=== PATIENT | female | born 1985 | race Caucasian/White ===

== ENCOUNTER 2017-11-07 05:55 | Emergency (ER) | payer BC, OTHER ==
[2017-11-07 06:25] LABS: Bilirubin Negative (Negative); Blood, Urine Small (Negative); Clarity CLEAR (Clear); Glucose, Urine (Dipstick) Negative (Negative); Leukocyte Trace (Negative); Nitrite Negative (Negative); Pregnancy Test - Urine (BHCG) Negative (Negative); Pregu Control Background? CLEAR/WHITE (CLR/WHITE); Pregu Control Bar Appear? YES (CONTROL BAR); Protein, Urine (Dipstick) Negative (Neg-Trace); Specific Gravity 1.013 (1.002-1.036); Specific Gravity, Urine 1.013 (1.002-1.036); Urobilinogen 0.2 mg/dL (0.2-1.0); pH, Urine 6.5 (5.0-9.0)
[2017-11-07 06:27] LABS: Bacteria/HPF Rare-Few HPF (None Seen); Hyaline Casts/LPF 0-3 HYALINE CAST LPF (0-3 Hyaline); Pathc Cast-AUWi Flag 0.27 (0-2.49); RBC/HPF 0-3 HPF (0-3); Squamous Epithelial None Seen HPF (0-3); WBC/HPF 0-3 HPF (0-3)
[2017-11-07 06:35] LABS: #Basophils 0.1 thou/uL (0.0-0.2); #Eosinphils 0.1 thou/uL (0.0-0.7); #Lymphocytes 2.7 thou/uL (1.20-3.40); #Monocytes 0.5 thou/uL (0.11-0.59); #Neutrophils 4.5 thou/uL (1.40-6.50); %Basophils 0.6 % (0.0-1.0); %Eosinophils 1.7 % (0.0-10.0); %Lymphocytes 34.6 % (21.0-51.0); %Monocytes 6.1 % (0.0-10.0); Hemoglobin 15.1 g/dL (12.0-16.0); Mean Corpuscular HGB CONC 33.8 g/dL (32.0-36.0); Mean Corpuscular Hemoglobin 31.4 pg (27.0-31.0); Mean Platelet Volume 6.4 fL (7.4-10.4); Platelet Count 289 thou/uL (130-400); RBC Distribution Width 11.7 % (11.5-14.5); White Blood Cell (WBC) Count 7.9 thou/uL (4.8-10.8)
[2017-11-07 06:59] LABS: ALT (SGPT) 18 U/L (8-55); AST (SGOT) 16 U/L (5-34); Albumin 4.2 g/dL (3.5-5.0); Alkaline Phosphatase 70 U/L (40-150); Anion Gap 14 mmol/L (10-20); BUN (Urea Nitrogen) 16 mg/dL (7.0-18.7); Bilirubin, Total 0.4 mg/dL (0.2-1.2); Calc. Creatinine Clearance 0 mL/min (70-130); Calcium 9.4 mg/dL (7.8-10.44); Carbon Dioxide 24 mmol/L (22-29); Chloride 105 mmol/L (98-107); Estimated GFR-MDRD 72; Globulin 2.8 g/dL (2.4-3.5); Glucose 121 mg/dL (70-105); Potassium 3.5 mmol/L (3.5-5.1); Sodium 139 mmol/L (136-145)
--- NOTE | 2017-11-07 07:57 | RAD ---
KUB: COMPARISON: None. HISTORY: Left lower quadrant abdominal pain that began 5 days ago. FINDINGS: A single view of the abdomen shows a nonspecific, nonobstructed bowel gas pattern. Mild stool retent ion is seen throughout the colon. No suspicious calcifications are seen. IMPRESSION: Mild stool retention. POS: JORDY
--- NOTE | 2017-11-07 08:07 | ULT ---
PELVIC ULTRASOUND: Date: 11/07/17 HISTORY: Left lower quadrant pain/pelvic pain. FINDINGS: Multiple transabdominal and endovaginal sonographic images of the pelvis are obtained. Uterus demonst rates a normal sonographic appearance and measures 5.4 cm x 3.8 cm x 3.2 cm. The endometrial stripe m easures 0.1 cm in thickness, which is within normal limits. No fluid or fluid collection is seen in t he endometrial canal. The ovaries demonstrate a normal sonographic appearance bilaterally with peripheral follicles seen in each ovary. The right ovary measures 2.8 cm x 2.2 cm x 1.5 cm. The left ovary measures 3.3 cm x 2.0 cm x 1.8 cm. Doppler evaluation of each ovary with spectral analysis and color flow evaluation demonstrates arteri al flow. There is a small amount of free fluid seen in the left adnexal region. IMPRESSION: 1. Small amount of free fluid in the left adnexal region, which may be physiologic in origin. 2. Normal appearing uterus and bilateral ovaries. POS: SETH
== END 2017-11-07 09:15 | disposition home or self-care (01) ==
LOC: ERS 05:55
DX: K59.00 Constipation, unspecified (principal)
CPT/HCPCS: 74018; 76856; 80053; 81003; 81015; 81025; 85025

== ENCOUNTER 2017-11-23 11:06 | Outpatient (CLI) | payer BC ==
[2017-11-23] MEDS ORDERED: ISOVUE-370 76%-LOCM 1 ML ONE (14:59)
== END 2017-11-23 11:07 | disposition home or self-care (01) ==
LOC: BICCT 11:06
PROVIDERS: ATTEND Internal Medicine
DX: R10.32 Left lower quadrant pain; K57.80 Diverticulitis of intestine, part unspecified, with perforation and abscess without bleeding
CPT/HCPCS: 74177

== ENCOUNTER 2022-11-20 11:53 | Outpatient (CLI) | payer BC | END 2022-11-20 11:54 | disposition home or self-care (01) | LOC: SCSRAD 11:53 | PROVIDERS: ATTEND Internal Medicine Rheumatology | DX: I73.00 Raynaud's syndrome without gangrene (principal); M25.50 Pain in unspecified joint; M25.60 Stiffness of unspecified joint, not elsewhere classified; R53.83 Other fatigue; M25.469 Effusion, unspecified knee | CPT/HCPCS: 73565 ==